=== PATIENT | female | born 1990 | race American Indian/Alaskan Native ===

== ENCOUNTER 2016-10-28 11:06 | Emergency (ER) | payer SELFPAY ==
[2016-10-28 11:12] VITALS: BP 136/101
[2016-10-28] MEDS ORDERED: TETRACAINE 0.5% OU STA (11:43)
[2016-10-28] MEDS ORDERED: FUL-GLO OP ONE (11:43)
[2016-10-28] MEDS ORDERED: BOOSTRIX IM ONE (12:00)
[2016-10-28] MEDS ORDERED: TORADOL IM ONE (12:00)
--- NOTE | 2016-10-28 12:09 | Emergency Department Report ---
ED Eye Problem HPI - General Chief complaint: Eye Problems Stated complaint: RT EYE IRRITATION Time Seen by Provider: 10/28/16 11:42 Source: patient Mode of arrival: Ambulatory Limitations: No Limitations - History of Present Illness Initial comments: PT c/o eye irritation x 2 days. 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 PT states the irritation has gradually gotten worse. PT states it feels like something is in her eye. PT states her eye was crusty when she woke up this morning. PT states she used Visine but no improvement with the symptoms. PT states she is supposed to wear glasses but they are broken. PT denies contact lens use. PT states her TD vaccine is not up to date. chief complaint: eye pain -: Gradual, days(s) (2) Onset Description: sudden Location: right eye Place: work If Injury: other (occurered while cleaning ) Eye Symptoms: burning, redness, pain, foreign body sensation, discharge, blurry vision, photophobia Severity: severe Severity scale (0 -10): 10 If Pain, Quality: burning Consistency: constant Associated Symptoms: none Treatments Prior to Arrival: OTC eye drops - Related Data Patient Tetanus UTD: No Previous Rx's Medication Instructions Recorded Last Taken Type Acetaminophen/Codeine [Tylenol #3] 1 tab PO Q6H PRN #12 tab 10/28/16 Unknown Rx Erythromycin [Erythromycin Ophth 1 cm OD QID 7 Days 10/28/16 Unknown Rx Oint] Ibuprofen [Motrin] 600 mg PO Q8H PRN #15 tablet 10/28/16 Unknown Rx Allergies Allergy/AdvReac Type Severity Reaction Status Date / Time No Known Allergies Allergy Unverified 10/28/16 11:09 ED Review of Systems ROS: Stated complaint: RT EYE IRRITATION Other details as noted in HPI Comment: All other systems reviewed and negative Constitutional: denies: chills, fever Gastrointestinal: denies: nausea, vomiting Genitourinary: denies: abnormal menses Skin: denies: rash ED Past Medical Hx - Past Medical History Previous Medical History?: No - Surgical History Past Surgical History?: No - Social History Smoking Status: Never Smoker Substance Use Type: None - Medications Home Medications: Home Medications Medication Instructions Recorded Confirmed Last Taken Type Acetaminophen/Codeine [Tylenol #3] 1 tab PO Q6H PRN #12 tab 10/28/16 Unknown Rx Erythromycin [Erythromycin Ophth 1 cm OD QID 7 Days 10/28/16 Unknown Rx Oint] Ibuprofen [Motrin] 600 mg PO Q8H PRN #15 tablet 10/28/16 Unknown Rx ED Physical Exam - General Limitations: No Limitations General appearance: alert, in no apparent distress, obese - Head Head exam: Present: atraumatic, normocephalic, normal inspection - Eye Eye exam: Present: PERRL, EOMI, conjunctival injection, other (R eye examined under wood's lamp, + large corneal abrasion over pupil. no fb seen. ). Absent : nystagmus, periorbital swelling, periorbital tenderness Pupils: Present: normal accommodation - Expanded Eye Exam Expanded Pupils: Regular, Round: Bilateral Sclera/Conjunctival: Injection: Right Anterior chamber: Normal Inspection: Right Visual acuity (R) = 20/: 70 Visual acuity (L) = 20/: 50 With correction: No - ENT ENT exam: Present: normal exam, normal external ear exam - Neck Neck exam: Present: normal inspection, full ROM. Absent: tenderness - Respiratory Respiratory exam: Present: normal lung sounds bilaterally. Absent: respiratory distress - Cardiovascular Cardiovascular Exam: Present: regular rate, normal rhythm - Extremities Exam Extremities exam: Present: normal inspection, full ROM - Back Exam Back exam: Present: normal inspection, full ROM - Neurological Exam Neurological exam: Present: alert, oriented X3, normal gait - Psychiatric Psychiatric exam: Present: normal affect, normal mood - Skin Skin exam: Present: warm, dry, intact ED Course Vital Signs 10/28/16 10/28/16 11:09 12:19 Temperature 98.5 F Pulse Rate 73 Respiratory 16 12 Rate Blood Pressure 136/101 O2 Sat by Pulse 100 Oximetry - Reevaluation(s) Reevaluation #1: 10/28/16 12:14 PT aware of physical exam findings and need for follow up with Ophthalmology - Pulse Oximetry Interpretation Digit-Finger Initial Pulse Oximetry Readin Actions Taken: none ED Medical Decision Making - Differential Diagnosis conjunctivitis, corneal abrasion Critical Care Time: No Critical care attestation.: If time is entered above; I have spent that time in minutes in the direct care of this critically ill patient, excluding procedure time. ED Disposition Clinical Impression: Need for Tdap vaccination, Elevated blood pressure reading Corneal abrasion Qualifiers: Encounter type: initial encounter Laterality: right Qualified Code(s): S05.01XA - Injury of conjunctiva and corneal abrasion without foreign body, right eye, initial encounter Disposition: TO HOME OR SELFCARE Is pt being admited?: No Does the pt Need Aspirin: No Condition: Stable Instructions: Corneal Abrasion (ED), Diphtheria Tetanus and Pertussis Vaccination (ED) Additional Instructions: Follow up with PCP in 3-5 days for bp recheck Follow up with Ophthalmology in the next 1-2 days No driving or alcohol after taking Tylenol #3 Prescriptions: Acetaminophen/Codeine [Tylenol #3] 1 tab PO Q6H PRN #12 tab PRN Reason: Pain , Severe (7-10) Erythromycin [Erythromycin Ophth Oint] 1 cm OD QID 7 Days Ibuprofen [Motrin] 600 mg PO Q8H PRN #15 tablet PRN Reason: Pain Referrals: PRIMARY CARE, [Primary Care Provider] - 3-5 Days JOSE RAMÍREZ MD [Staff Physician] - 3-5 Days [facility] [Outside] - 3-5 Days LOGAN NICHOLE MD [Staff Physician] - 3-5 Days Forms: Work/School Release Form(ED) Time of Disposition: 12:18
== END 2016-10-28 12:26 | disposition home or self-care (01) ==
LOC: ED 11:06
DX: S05.01XA Injury of conjunctiva and corneal abrasion without foreign body, right eye, initial encounter (principal); R03.0 Elevated blood-pressure reading, without diagnosis of hypertension; Z23 Encounter for immunization; X58.XXXA Exposure to other specified factors, initial encounter; Y93.H9 Activity, other involving exterior property and land maintenance, building and construction; Y99.9 Unspecified external cause status; Y92.89 Other specified places as the place of occurrence of the external cause
CPT/HCPCS: 90471; 90715; 96372; 99283; J1885

== ENCOUNTER 2020-02-23 23:27 | Emergency (ER) | payer OTHER | END 2020-02-24 06:00 | disposition left against medical advice (07) | LOC: ED 23:27 | DX: M54.2 Cervicalgia (principal); Z53.21 Procedure and treatment not carried out due to patient leaving prior to being seen by health care provider ==